=== PATIENT | male | born 1990 | race Caucasian/White ===

== ENCOUNTER 2023-10-24 15:55 | Emergency (ER) | payer BC ==
[2023-10-24 16:01] VITALS: O2SAT 100
--- NOTE | 2023-10-24 18:01 | ED Physician Documentation ---
History of Present Illness - Stated complaint Stated Complaint: LT HAND INJ - Chief complaint Chief Complaint: Wound - Additonal information Additional information: Patient is a 33-year-old male with no significant past medical history presents to the emergency department after he was on his boat this afternoon and accidentally got stuck by a needle. Patient shares the boat with another partner and he had friends on the boat last week. Patient does not know who needles belong to him he does not know the substance in the needles. Patient notes he grazed his left hand. He denies noticing any bleeding after this injury. Patient is up-to-date on his tetanus and he received hep B vaccines. Patient is not immunocompromised. PD PAST MEDICAL HISTORY - Past Medical History Past Medical History: No Cardiovascular: None Respiratory: None Neuro: None Endocrine/Autoimmune: None GI: None : None HEENT: None Psych: None Musculoskeletal: None Derm: None - Past Surgical History Past Surgical History: No - Present Medications Home Medications: Ambulatory Orders Medication Instructions Recorded Confirmed lamiVUDine/ZIDOVUDINE Prepack 1 tab PO BID 7 Days #14 tablet 10/24/23 [COMBIVIR Prepack] - Allergies Allergies/Adverse Reactions: Allergies Allergy/AdvReac Type Severity Reaction Status Date / Time No Known Drug Allergies Allergy Verified 10/24/23 15:59 - Social History Does the pt smoke?: No Smoking Status: Never smoker Does the pt drink ETOH?: No Does the pt have substance abuse?: No - Immunizations Immunizations are current?: Yes - POLST Patient has POLST: No PD ED PE NORMAL - Vitals Vital signs reviewed: Yes - General General: Alert and oriented X 3 - HEENT HEENT: Atraumatic - Cardiac Cardiac: RRR, No gallop, No rub - Respiratory Respiratory: No respiratory distress, Clear bilaterally Results - Vitals Vitals: Oxygen O2 Source Room air - Labs Labs: Laboratory Tests 10/24/23 10/24/23 10/24/23 18:15 18:25 18:25 WBC 8.2 RBC 5.02 Hgb 15.8 Hct 45.3 MCV 90.2 MCH 31.5 H MCHC 34.9 RDW 11.8 L Plt Count 263 MPV 9.8 Sodium 137 Potassium 3.7 Chloride 102 Carbon Dioxide 29 Anion Gap 6.0 BUN 16 Creatinine 0.9 Estimated GFR (MDRD) 96 Glucose 76 Calcium 10.1 Total Bilirubin 0.6 AST 20 ALT 15 Alkaline Phosphatase 49 Total Protein 7.7 Albumin 4.8 Globulin 2.9 Albumin/Globulin Ratio 1.7 Urine Color YELLOW Urine Clarity CLEAR Urine pH 6.0 Ur Specific [place] 1.025 Urine Protein NEGATIVE Urine Glucose (UA) NEGATIVE Urine Ketones NEGATIVE Urine Occult Blood NEGATIVE Urine Nitrite NEGATIVE Urine Bilirubin NEGATIVE Urine Urobilinogen 0.2 (NORMAL) Ur Leukocyte Esterase NEGATIVE Ur Microscopic Review NOT INDICATED Urine Culture Comments NOT INDICATED PD Medical Decision Making - ED course Complexity details: reviewed results ED course: Patient is a 33-year-old male presents to the emergency department with accidental needlestick while on his boat and getting stuck by a needle from an unknown source and unknown contacts. Patient denies any history of IV drug use. This occurred a few hours prior to arrival. Patient denies any blood was drawn and suspects is most likely graze from the injury. Discussed with patient on treatment he has a history of tetanus shots and a history of hep B shots. Given no signs of wound that is open no need for antibiotics at this time. Discussed with patient he would like to be started on HIV PrEP treatment. Discussed with patient side effects of these medications include nausea vomiting diarrhea fatigue liver complications and kidney complications. Patient would like to proceed with these medications despite risks. Patient will be started on Combivir given his accidental needlestick and will be provided 7-week dose before he can follow-up with his PCP. Patient is going on a boating trip and would like them sent to [place] where he can pick them up. Patient was given a prepack here for 2 days in emergency department. Instructed patient to watch for any wounds redness swelling to insertion site he should return to emergency department. Patient will need to follow-up with titers obtained here in the emergency department with his PCP. Additionally discussed with patient his CBC and CMP panels were stable prior to starting PEP. Departure - Departure Disposition: 01 Home, Self Care Clinical Impression: Needlestick injury due to hypodermic needle Condition: Good Instructions: ED Body Fluid Exp Not HC Worker Prescriptions: lamiVUDine/ZIDOVUDINE Prepack [COMBIVIR Prepack] 1 tab PO BID 7 Days #14 tablet Comments: You were seen here in the emergency department for your accidental needlestick and started you on prophylactic treatment for possible HIV exposure. Please take as prescribed you have history of hepatitis B and tetanus up-to-date. Please follow-up with your PCP as soon as you return home from your trip. If you develop any redness swelling discharge around accidental insertion site please return to the emergency department. Forms: PCP List Discharge Date/Time: 10/24/23 19:59
[2023-10-24 18:30] LABS: HCT - HEMATOCRIT 45.3 % (42.0-52.0); HGB - HEMOGLOBIN 15.8 g/dL (14.0-18.0); MEAN CORPUSCULAR HEMOGLOBIN 31.5 pg (27.0-31.0); MEAN CORPUSCULAR HGB CONC 34.9 g/dL (32.0-36.0); MEAN CORPUSCULAR VOLUME 90.2 fL (80.0-94.0); MEAN PLATELET VOLUME 9.8 fL (7.4-11.4); RED BLOOD COUNT 5.02 10^6/uL (4.70-6.10); RED CELL DISTRIBUTION WIDTH 11.8 % (12.0-15.0); WHITE BLOOD COUNT 8.2 x10^3/uL (4.8-10.8)
[2023-10-24 18:33] LABS: BILIRUBIN,URINE NEGATIVE (NEGATIVE); GLUCOSE, URINE (UA) NEGATIVE (NEGATIVE); KETONES,URINE (UA) NEGATIVE (NEGATIVE); LEUKOCYTE ESTERASE, URINE NEGATIVE (NEGATIVE); NITRITE,URINE NEGATIVE (NEGATIVE); OCCULT BLOOD,URINE NEGATIVE (NEGATIVE); PROTEIN,URINE NEGATIVE (NEGATIVE); UROBILINOGEN,URINE 0.2 (NORMAL) E.U./dL (NORMAL)
[2023-10-24 18:35] LABS: CLARITY,URINE CLEAR (CLEAR)
[2023-10-24 18:46] LABS: ALBUMIN 4.8 g/dL (3.2-5.5); ALBUMIN/GLOBULIN RATIO 1.7 (1.0-2.2); BILIRUBIN,TOTAL 0.6 mg/dL (0.2-1.0); CALCIUM 10.1 mg/dL (8.5-10.3); CREATININE 0.9 mg/dL (0.6-1.3); POTASSIUM 3.7 mmol/L (3.5-4.5); TOTAL PROTEIN 7.7 g/dL (6.4-8.9)
[2023-10-24] MEDS: lamiVUDine/ZIDOVUDINE 150 MG/300 MG Prepack 2 PO STA (19:43)
[2023-10-24] MEDS: lamiVUDine/ZIDOVUDINE 150 MG/300 MG Prepack 2 PO SCH (19:43)
[2023-10-24] MEDS: lamiVUDine/ZIDOVUDINE 150 MG/300 MG TABLET PO STA (19:44)
[2023-10-24] MEDS ORDERED: lamiVUDine/ZIDOVUDINE 150 MG/300 MG Prepack 2 PO ONE (19:48)
[2023-10-24 20:06] VITALS: BP 130/80
[2023-10-24] MEDS ORDERED: lamiVUDine/ZIDOVUDINE 150 MG/300 MG Prepack 2 PO SCH (21:00)
[2023-10-26 07:08] LABS: HIV SCREEN 4TH GENERATION Non Reactive (Non Reactive)
[2023-10-27 02:08] LABS: HCV AB Non Reactive (Non Reactive)
== END 2023-10-24 19:59 | disposition home or self-care (01) ==
LOC: ED 15:55
DX: S69.91XA Unspecified injury of right wrist, hand and finger(s), initial encounter (principal); W46.0XXA Contact with hypodermic needle, initial encounter; Y92.814 Boat as the place of occurrence of the external cause
CPT/HCPCS: 36415; 80053; 81001; 81003; 85027; 86317; 86803; 87086; 87389; 99283; 99284